=== PATIENT | male | born 1990 | race Caucasian/White ===

== ENCOUNTER 2020-11-20 15:48 | Outpatient (CLI) | payer SELFPAY ==
--- NOTE | 2020-11-20 11:56 | CT_ITS ---
WS: [id number] CT LUMBAR SPINE TECHNIQUE: Noncontrast CT of the lumbar spine with coronal and sagittal reformatted images. CLINICAL INFORMATION: M54.40 - Lumbago with sciatica, unspecified side COMPARISON: None. DLP: 2708.[address] scans at [facility] use at least one of these dose optimization techniques: automat ed exposure control; mA and/or kV adjustment per patient size (includes targeted exams where dose is matched to clinical indication); or iterative reconstruction. FINDINGS: Mild lumbar curve convex left. No acute compression fractures. 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 Mild disc bulging with peripheral calcification at L3-4. Bilateral chronic pars defects L3-4. No significant anterolisthesis. T12-L1: Narrowing of the right subarticular recess. No significant disc bulging. Moderate facet arthr opathy. Mild right and no significant left foraminal narrowing. L1-L2: No significant disc bulging. Moderate facet arthropathy with ligamentum flavum hypertrophy. Mi ld central canal stenosis. Foramen are patent. L2-L3: Minimal annular bulging. Moderate central canal stenosis. Moderate facet arthropathy with liga mentum flavum hypertrophy. Foramen are patent. L3-L4: Chronic bilateral pars defects. Moderate to advanced facet arthropathy with ligamentum flavum hypertrophy. Shallow central disc osteophyte protrusion with moderate central canal stenosis. Impinge ment on the subarticular recess bilaterally. Mild to moderate right L3-4 foraminal narrowing. L4-L5: Disc complex with endplate ridging. Tiny central disc osteophyte protrusion. Mild to moderate central canal stenosis. Moderate facet arthropathy with ligamentum flavum hypertrophy. Foramen are pa tent. L5-S1: Mild disc osteophytic ridging. Slight effacement of ventral thecal sac. Slight contact of the S1 nerve roots. Mild left greater than right bony foraminal narrowing. Moderate facet arthropathy. Visualized pelvic bony structures: Normal. Paravertebral soft tissues: Normal. Adrenal glands are normal. CT/CT lumbar spine wo con* [id number] IMPRESSION: 1. Mild lumbar curve convex left. No acute compression. 2. 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 Chronic bilateral pars defects L3-4. No anterolisthesis. 4. Moderate central canal stenosis L3-4 due to shallow central disc osteophyte protrusion with advanced facet arthropathy with ligamentum flavum hypertrophy. Impingement on the subarticular recess right greater than left. 5. Mild central canal stenosis L2-3 and L4-5. 6. Narrowing of the right subarticular recess T12-L1 with moderate facet arthr opathy. Mild right foraminal narrowing. 7. Mild to moderate right L3-4 bony foraminal narrowing. 8. Moderate facet arthropathy L3-4 and L4-5.
== END 2020-11-20 15:49 | disposition home or self-care (01) ==
LOC: RAD 15:49
PROVIDERS: Visit Provider Registered Nurse
DX: M54.40 Lumbago with sciatica, unspecified side (principal); M47.816 Spondylosis without myelopathy or radiculopathy, lumbar region; M48.061 Spinal stenosis, lumbar region without neurogenic claudication
CPT/HCPCS: 72131

== ENCOUNTER → 2022-05-20 13:16 | Outpatient (BNVA) | payer OTHER, SELFPAY | PROVIDERS: Visit Provider Emergency Medicine | DX: Z20.822 Contact with and (suspected) exposure to COVID-19 (principal); U07.1 COVID-19 | CPT/HCPCS: 87426 ==

== ENCOUNTER 2023-03-13 06:46 | Emergency (ER) | payer OTHER, SELFPAY ==
[2023-03-13 06:54] VITALS: BP 171/114; PULSE 65; RESP 18; TEMP 37.2; O2SAT 98; BMI 55.7
--- NOTE | 2023-03-13 07:16 | ED_ITS ---
HPI - Dental/Oral General: Chief complaint: Dental/Oral Stated complaint: lower left tooth pain Time Seen by Provider: 03/13/23 06:59 Source: patient Mode of arrival: ambulatory History of Present Illness: 32-year-old male presents emergency room with a fractured left mandibular molar. (Tooth #17). Patient was seen yesterday at [place] is given a tablet for pain but states it really did not help. Unfortunately does not have a local dentist he is established with. Onset (ago): day(s) Duration: constant Severity: moderate Relieving factors: nothing Exacerbating factors: nothing Context: history of dental caries Associated symptoms: Reports gum swelling; Denies ear or mastoid pain, fever(s), odynophagia, sore throat or tongue swelling Treatment prior to arrival: none Review of Systems Const: Denies: fever(s) or chills ENMT: Reports: dental pain; Denies: enlarged tonsils, odynophagia, hoarseness or ear or mastoid pain Card: Denies: chest pain, edema, dyspnea on exertion or orthopnea Resp: Denies: dyspnea, productive cough or non-productive cough GI: Denies: abdominal pain, nausea or vomiting : Denies: flank pain, dysuria, urinary frequency or urinary urgency Skin/Breast: Denies: rash or pruritus All/Imm: Denies: tongue swelling PFSH ED PFSH: Medical History Muscle tension headache Family History Mother CHF (congestive heart failure) Diabetes Social History Smoking and tobacco status: former smoker Alcohol intake: never Substance/Drug Use: never Adopted: No Caregiver/support person: No Lives independently: No Household members: significant other service: No Current occupational status: unemployed Sexually active: Yes Do you think of yourself as: Straight/Heterosexual Current gender identity: Male Physical Exam Const: GENERAL APPEARANCE: cooperative and comfortable ORIENTATION/CONSCIOUSNESS: Yes awake, Yes oriented to person, Yes oriented to place and Yes oriented to time HENMT: COMMON NORMALS: normocephalic, atraumatic and hearing grossly normal bilaterally HEAD & SCALP: normocephalic and atraumatic OTHER: Poor dentition. There is swelling and thickening of the gum around tooth numbers 17 and 18 the left mandible posteriorly. There is no abscess no lymphadenopathy no submandibular swelling. Resp: COMMON NORMALS: normal respiratory effort, No retractions, No use of accessory muscles and clear to auscultation bilaterally AUSCULTATION: clear to auscultation bilaterally Cardio: COMMON NORMALS: regular rate, regular rhythm and No murmurs present (Cardio) RATE: regular rate RHYTHM: regular rhythm GI: COMMON NORMALS: Soft to palpation and No hepatosplenomegaly present AUSCULTATION: Yes normoactive bowel sounds PALPATION: Yes Soft to palpation, No Tenderness to palpation present (GI), No Guarding due to palpation present (GI) and Yes No hepatosplenomegaly present Extremity: COMMON NORMALS: normal to inspection, capillary refill normal, no clubbing, cyanosis or edema, no calf tenderness and no pedal edema Neuro: SENSORIUM/ORIENTATION: Yes oriented to person, Yes oriented to place and Yes oriented to time Skin: COMMON NORMALS: no rashes or lesions noted GENERAL SKIN EXAM: no rashes or lesions noted Course Vital Signs: Vital signs: Vital Signs Temperature 98.9 F 03/13/23 06:54 Pulse Rate 67 03/13/23 07:33 Respiratory Rate 15 03/13/23 07:33 Blood Pressure 171/114 03/13/23 06:54 Pulse Oximetry 100 03/13/23 07:33 Oxygen Delivery Me thod Room Air 03/13/23 06:54 MDM - Dental/Oral Medical Decision Making Unfortunately we do not have anyone on staff for extractions. We will start on Augmentin gave pain medications can use at home along with ibuprofen 600 mg every 8 hours. Avoid foods that extreme temperatures follow-up with dentist as soon as he is able. Discharge Plan Discharge Patient Disposition: Home Clinical Impression: Fracture of tooth, Dental caries Condition: Stable Prescriptions: New amoxicillin-pot clavulanate 875-125 mg tablet 1 tab PO BID Qty: 20 0RF hydrocodone-acetaminophen 7.5-325 mg tablet 1 tab PO Q6H PRN (Reason: pain) Qty: 10 0RF No Action albuterol sulfate [Ventolin HFA] 90 mcg/actuation HFA aerosol inhaler 2 puff inhalation Q6H PRN (Reason: shortness of breath or wheezing) Qty: 8.5 0RF Discharge Orders: Discharge ED (Routine); Ordered 03/13/23 Ordered By: Chris Gan Patient Instructions: Opioid Safety, Pain Management Activity Restrictions/Additional Instructions: You are seen today for fractured tooth there appears to be infection along the gumline. Recommend you follow-up with a dentist as soon as you are able for definitive care in the interim you are given pain medication and an antibiotic. Coding Level of Care Code ED Border Machine Operator for Anca Tovar
[2023-03-13] MEDS: ketorolac 60 mg/2 mL INJ IM (07:18)
[2023-03-13] MEDS: HYDROcodone-acetaminophen 7.5-325 mg Tablet 1 TAB PO (07:32)
[2023-03-13 07:33] VITALS: PULSE 67; RESP 15; O2SAT 100
== END 2023-03-13 07:34 | disposition home or self-care (01) ==
PROVIDERS: Emergency Provider Family Medicine
DX: K02.9 Dental caries, unspecified (principal); S02.5XXA Fracture of tooth (traumatic), initial encounter for closed fracture; X58.XXXA Exposure to other specified factors, initial encounter; Z87.891 Personal history of nicotine dependence
CPT/HCPCS: 96372; 99284; J1885

== ENCOUNTER 2023-05-31 05:39 | Emergency (ER) | payer OTHER, SELFPAY ==
--- NOTE | 2023-05-31 05:44 | XRR_ITS ---
PROCEDURE INFORMATION: Exam: XR Chest Exam date and time: 05/31/2023 5:48 AM Age: 32 years old Clinical indication: Left-sided; Patient HX: C/O left sided chest pain; Additional info: Cp TECHNIQUE: Imaging protocol: Radiologic exam of the chest. Views: 1 view. COMPARISON: No relevant prior studies available. FINDINGS: Tubes, catheters and devices: A couple monitor leads project over the chest. Lungs: No significant or acute findings. No consolidation. Pleural spaces: No significant costophrenic angle blunting. No pneumothorax. Heart/Mediastinum: Enlarged cardiopericardial silhouette. Bones/joints: No acute osseous abnormality. Soft tissues: Large body habitus. XR/XR chest 1V portable [id number] IMPRESSION: Cardiomegaly versus pericardial effusion.
--- NOTE | 2023-05-31 05:45 | ECG_ITS ---
[facility] Test Date: 2023-05-31 Pat Name: Dav Almodovar Department: Room: Gender: Male Rehabilitation Attendant: : 1990 Requested By: Keith Rod Order Number: [id number] Ingrid MD: Filiberto Nielson M.D. Measurements Intervals [place] Rate: 52 P: 52 [place]: 168 QRS: 50 QRSD: 105 T: 29 QT: 405 QTc: 378 Interpretive Statements SINUS BRADYCARDIA WITH OCCASIONAL SUPRAVENTRICULAR PREMATURE COMPLEXES No previous ECG available for comparison Electronically Signed On 05-31-2023 16:15:48 CDT by Filiberto Nielson M.D. [email or web address] [email or web address] [email or web address].[email or web address]/store/NU/[id number] f
[2023-05-31 05:46] VITALS: BP 169/79; PULSE 50; RESP 17; TEMP 37; O2SAT 99; BMI 55.7
[2023-05-31 06:03] LABS: Basophils # 0.1 10^3/uL (0.0-0.1); Basophils % 0.4 %; Eosinophils # 0.3 10^3/uL (0.0-0.8); Eosinophils % 2.2 %; Hematocrit 45.1 % (37-53); Lymphocytes # 2.8 10^3/uL (0.8-4.8); Lymphocytes % 19.7 %; Mean Corpuscular HGB Conc 34.1 g/dL (30-55); Mean Corpuscular Hemoglobin 28.8 pg (27-33); Mean Corpuscular Volume 84.3 fl (82-101); Mean Platelet Volume 10.4 fL (7.4-10.4); Monocytes # 0.7 10^3/uL (0.2-0.9); Monocytes % 4.8 %; Neutrophils # 10.11 10^3/uL (1.8-7.7); Neutrophils % 72.3 %; Nucleated Red Blood Cells % 0 %; Platelet Count 339 10^3/cmm (157-399); Red Blood Count 5.35 10^6/uL (3.85-5.65); Red Cell Distribution Width 13.9 % (12.1-15.1); White Blood Count 13.98 10^3/uL (3.29-11.43)
[2023-05-31 06:19] LABS: INR 1.01 (0.8-1.2)
[2023-05-31 06:20] VITALS: BP 150/84; PULSE 53; RESP 18; O2SAT 97
--- NOTE | 2023-05-31 06:21 | W.ED.CHESTPA ---
HPI - Chest Pain General: Chief Complaint: Chest Pain Stated Complaint: tightness in chest sob Time Seen by Provider: 05/31/23 05:46 Source: patient Mode of arrival: ambulatory History of Present Illness: 32-year-old male who presents to the emergency room with complaints of chest discomfort and shortness of breath. He is not episodes like this before he woke up from sleep he feels like it radiates into his back place localizes pain to the left side of the chest tight aching sensation. Patient denies history of diabetes heart disease he is non-smoker. MD complaint: chest pain Onset (ago): minute(s) Timing of current episode: episodic Prior episodes: No Onset: during rest Pain location: left chest Pain radiation: back Severity: mild Quality: tightness and aching Relieving factors: nothing Exacerbating factors: nothing Associated symptoms: Deny abdominal pain, diaphoresis, dyspnea, fever(s), leg edema, nausea, palpitations, sense of impending doom, syncope or vomiting Treatment prior to arrival: none Review of Systems Const: Denies: fever(s), chills, fatigue, malaise or diaphoresis ENMT: Denies: throat pain, ear or mastoid pain, nasal discharge or nasal congestion Card: Reports: chest pain; Denies: palpitations, irregular heart rhythm, edema or syncope Resp: Denies: dyspnea, productive cough or non-productive cough GI: Denies: abdominal pain, nausea or vomiting : Denies: flank pain, dysuria, urinary frequency or urinary urgency Skin/Breast: Denies: rash or pruritus PFSH ED PFSH: Medical History Muscle tension headache Family History Mother CHF (congestive heart failure) Diabetes Social History Smoking and tobacco status: former smoker Alcohol intake: never Substance/Drug Use: never Adopted: No Caregiver/support person: No Lives independently: No Household members: significant other service: No Current occupational status: unemployed Sexually active: Yes Do you think of yourself as: Straight/Heterosexual Current gender identity: Male Physical Exam Const: GENERAL APPEARANCE: cooperative and comfortable ORIENTATION/CONSCIOUSNESS: Yes awake, Yes oriented to person, Yes oriented to place and Yes oriented to time HENMT: COMMON NORMALS: normocephalic, atraumatic and hearing grossly normal bilaterally HEAD & SCALP: normocephalic and atraumatic Resp: COMMON NORMALS: normal respiratory effort, No retractions, No use of accessory muscles and clear to auscultation bilaterally AUSCULTATION: clear to auscultation bilaterally Cardio: COMMON NORMALS: regular rate, regular rhythm and No murmurs present (Cardio) RATE: regular rate RHYTHM: regular rhythm GI: COMMON NORMALS: Soft to palpation and No hepatosplenomegaly present AUSCULTATION: Yes normoactive bowel sounds PALPATION: Yes Soft to palpation, No Tenderness to palpation present (GI), No Guarding due to palpation present (GI) and Yes No hepatosplenomegaly present Extremity: COMMON NORMALS: normal to inspection, capillary refill normal, no clubbing, cyanosis or edema, no calf tenderness and no pedal edema Neuro: SENSORIUM/ORIENTATION: Yes oriented to person, Yes oriented to place and Yes oriented to time Skin: COMMON NORMALS: no rashes or lesions noted GENERAL SKIN EXAM: no rashes or lesions noted Course Vital Signs: Vital signs: Vital Signs Temperature 98.6 F 05/31/23 05:46 Pulse Rate 63 05/31/23 08:19 Respiratory Rate 21 H 05/31/23 08:19 Blood Pressure 137/66 05/31/23 08:19 Pulse Oximetry 97 05/31/23 08:19 Oxygen Delivery Me thod Room Air 05/31/23 08:19 MDM - Chest Pain Medical Decision Making Labs and imaging reviewed. Cardiomegaly on the chest x-ray was a slightly elevated white count and CRP. Echocardiogram no evidence of pericardial effusion does not believe patient at this point has a pericarditis. His symptoms are gone at this time. Chest x-ray does not show any pneumonia he is not tachycardic or hypotensive he is not hypoxic. No evidence of acute coronary syndrome pulmonary emboli pneumothorax pneumonia or dissecting aneurysm based on history imaging findings and labs. We will discharge patient home suspect this may just be a simple viral pressure infection potentially even some pleuritic chest discomfort. Have the patient follow-up with his primary care doctor if he has persistent symptoms. Medical Records I reviewed the patient's medical records. Lab Data I reviewed the patient's lab results. 05/31/23 05:43 05/31/23 05:43 Radiology Impressions Chest X-Ray 05/31/23 05:44 IMPRESSION: Cardiomegaly versus pericardial effusion. Laboratory Results WBC 13.98 10^3/uL (3.29-11.43) H 05/31/23 05:43 RBC 5.35 10^6/uL (3.85-5.65) 05/31/23 05:43 Hgb 15.40 g/dL (11.27-16.99) 05/31/23 05:43 Hct 45.1 % (37-53) 05/31/23 05:43 MCV 84.3 fl (82-101) 05/31/23 05:43 MCH 28.8 pg (27-33) 05/31/23 05:43 MCHC 34.1 g/dL (30-55) 05/31/23 05:43 RDW 13.9 % (12.1-15.1) 05/31/23 05:43 Plt Count 339 10^3/cmm (157-399) 05/31/23 05:43 MPV 10.4 fL (7.4-10.4) 05/31/23 05:43 Neut % (Auto) 72.3 % 05/31/23 05:43 Lymph % (Auto) 19.7 % 05/31/23 05:43 [place] % (Auto) 4.8 % 05/31/23 05:43 Eos % (Auto) 2.2 % 05/31/23 05:43 Baso % (Auto) 0.4 % 05/31/23 05:43 Neut # (Auto) 10.11 10^3/uL (1.8-7.7) H 05/31/23 05:43 Lymph # (Auto) 2.8 10^3/uL (0.8-4.8) 05/31/23 05:43 [place] # (Auto) 0.7 10^3/uL (0.2-0.9) 05/31/23 05:43 Eos # (Auto) 0.3 10^3/uL (0.0-0.8) 05/31/23 05:43 Baso # (Auto) 0.1 10^3/uL (0.0-0.1) 05/31/23 05:43 Nucleated RBC % (auto) 0 % 05/31/23 05:43 Nucleated RBCs # 0.0 /100WBC 05/31/23 05:43 PT 13.60 SECONDS (12.1-14.9) 05/31/23 05:43 INR 1.01 (0.8-1.2) 05/31/23 05:43 APTT 30.0 SECONDS (23.9-36.7) 05/31/23 05:43 Sodium 141 mmol/L (136-145) 05/31/23 05:43 Potassium 4.5 mmol/L (3.5-5.1) 05/31/23 05:43 Chloride 107 mmol/L (98-107) 05/31/23 05:43 Carbon Dioxide 23 mmol/L (22-29) 05/31/23 05:43 Anion Gap 15.5 (5-19) 05/31/23 05:43 BUN 17 mg/dL (6-20) 05/31/23 05:43 Creatinine 0.9 mg/dL (0.7-1.2) 05/31/23 05:43 GFR Calculation 98.4 mL/min (90-130) 05/31/23 05:43 Glucose 99 mg/dL (65-115) 05/31/23 05:43 Calculated Osmolality 294 mOsm/kg (285-295) 05/31/23 05:43 Calcium 9.2 mg/dL (8.5-10.5) 05/31/23 05:43 Total Bilirubin 0.6 mg/dL (0.15-1.2) 05/31/23 05:43 AST 17 U/L (0-40) 05/31/23 05:43 ALT 35 U/L (0-41) 05/31/23 05:43 Alkaline Phosphatase 90 U/L (40-130) 05/31/23 05:43 Troponin T Baseline 7 ng/L (0-15) 05/31/23 05:43 Troponin T 120 Minute 7.02 ng/L (0-15) 05/31/23 07:36 Delta Troponin T 0.02 ABS# (0-10) 05/31/23 07:36 C-Reactive Protein 17.3 mg/L (0.0-4.9) H 05/31/23 05:43 NT-Pro-B Natriuret Pep 75 pg/mL (0-125) 05/31/23 05:43 Total Protein 7.0 g/dL (6.6-8.7) 05/31/23 05:43 Albumin 4.5 g/dL (3.5-5.2) 05/31/23 05:43 Globulin 2.5 g/dL (1.3-4.6) 05/31/23 05:43 All radiology interpretation(s) finalized by discharge Discharge Plan Discharge Patient Disposition: Home Clinical Impression: Atypical chest pain Condition: Stable Prescriptions: No Action ibuprofen 200 mg Tablet 400 mg PO Q6H PRN (Reason: Pain) Discharge Orders: Discharge ED (Routine); Ordered 05/31/23 Ordered By: Chris Gan Discharge Diet: Usual diet Discharge Activity: Resume usual activity Patient Instructions: Opioid Safety, Pain Management Coding Level of Care Code ED Power Project Manager for Anca Tovar
[2023-05-31 06:24] LABS: Troponin(5th) Baseline 7 ng/L (0-15)
[2023-05-31] MEDS: lidocaine 2% viscous 15 ML, aluminum-mag hydrox-simethicon 30 ML, sucralfate oral liq 1 GM PO (06:32)
[2023-05-31 06:33] LABS: Alanine Aminotransferase 35 U/L (0-41); Albumin Level 4.5 g/dL (3.5-5.2); Alkaline Phosphatase 90 U/L (40-130); Anion Gap 15.5 (5-19); Aspartate Amino Transferase 17 U/L (0-40); Blood Urea Nitrogen 17 mg/dL (6-20); Calcium 9.2 mg/dL (8.5-10.5); Carbon Dioxide 23 mmol/L (22-29); Chloride 107 mmol/L (98-107); Globulin 2.5 g/dL (1.3-4.6); Glomerular Filtration Rate 98.4 mL/min (90-130); Glucose 99 mg/dL (65-115); NT Pro B Type Natriuretic Pept 75 pg/mL (0-125); Osmolality Calculated 294 mOsm/kg (285-295); Potassium 4.5 mmol/L (3.5-5.1); Sodium 141 mmol/L (136-145); Total Bilirubin 0.6 mg/dL (0.15-1.2)
[2023-05-31 06:48] LABS: C Reactive Protein 17.3 mg/L (0.0-4.9)
--- NOTE | 2023-05-31 06:52 | USCV_ITS ---
Dav Almodovar Age: 32 Gender: M : 1990 Exam Date: 05/31/2023 07:19 Ordering Phys: Chris Gan DO Technologist: Gilbert Amador [place] [facility] [place] ? per effusion BP: 153 / 81 HR: 50 Rhythm: Sinus Technical Quality: Adequate MEASUREMENTS (Male / Female) Normal Values 2D ECHO LV Diastolic Diameter PLAX 5.4 cm 4.2 - 5.9 / 3.9 - 5.3 cm LV Systolic Diameter PLAX 3.6 cm IVS Diastolic Thickness 1.6 cm 0.6 - 1.0 / 0.6 - 0.9 cm IVS Systolic Thickness 2.0 cm LVPW Diastolic Thickness 1.3 cm 0.6 - 1.0 / 0.6 - 0.9 cm LVPW Systolic Thickness 1.6 cm LVOT Diameter 2.1 cm LV Ejection Fraction 2D Teich 61.6 % LV Ejection Fraction MOD 2C 60.3 % LV Ejection Fraction 2C AL 60.2 % LA Diameter 3.6 cm M-MODE Aortic Annulus Diameter 3.8 cm LA Ao Ratio MM 1.0 MV E Point Septal Separation 1.6 cm DOPPLER AV Peak Velocity 132.0 cm/s LVOT Peak Velocity 103.0 cm/s AV Area Cont Eq vti 3.6 cm squared AV Area Cont Eq pk 2.8 cm squared MV Area PHT 4.8 cm squared Mitral E to A Ratio 1.6 MV E' Velocity 67.5 cm/s Mitral E to MV E' Ratio 12.5 Mitral E to LV E' Lateral Ratio 13.4 Mitral E to LV E' Septal Ratio 11.7 TR Peak Velocity 122.3 cm/s TR Peak Gradient 6.0 mmHg TV Peak E Velocity 124.0 cm/s Right Atrial Pressure 3.0 mmHg Pulmonary Artery Systolic Pressu 9.0 mmHg FINDINGS Left Ventricle Normal left ventricular size and systolic function, EF 66 %. No regional wall motion abnormalities. (Echo contrast - Optison was used to delineate the endocardium and to estimate the LV ejection fraction) Right Ventricle Was not visualized well. Possibly of normal size and ejection fraction Right Atrium Right atrium not well visualized. Left Atrium Possibly of normal size Mitral Valve No gross abnormalities noted Aortic Valve Leaflets could not be visualized well. No gross abnormalities noted Tricuspid Valve Tricuspid valve not well visualized. Pulmonic Valve Pulmonic valve not well visualized. Pericardium No pericardial effusion. Aorta Normal aortic annulus size. IVC Inferior vena cava not visualized. CONCLUSIONS Normal left ventricular size and systolic function, EF 66 %. No regional wall motion abnormalities. (Echo contrast - Optison was used to delineate the endocardium and to estimate the LV ejection fraction). Right ventricle, possibly of normal size ejection fraction. The left atrium also appears to be of normal size. No pericardial effusion. Technically difficult study because of the poor ultrasonic window. Dr Pernell Welch MD FACC (Electronically Signed) Final Date: 31 May 2023 08:30 S
--- NOTE | 2023-05-31 07:20 | PC.PHAR ---
pt states he takes no rx medications-pt states only takes otc ibuprofen prn-pt states he no longer has an albuterol inhaler ext shows last filled 07/31/22
--- NOTE | 2023-05-31 07:51 | ECG_ITS ---
[facility] Test Date: 2023-05-31 Pat Name: Dav Almodovar Department: Room: Gender: Male Underwriting Intern: : 1990 Requested By: Keith Rod Order Number: [id number] Ingrid MD: Filiberto Nielson M.D. Measurements Intervals [place] Rate: 56 P: 57 [place]: 161 QRS: 50 QRSD: 109 T: 24 QT: 405 QTc: 393 Interpretive Statements SINUS BRADYCARDIA Compared to ECG 05/31/2023 05:44:55 No significant changes Electronically Signed On 05-31-2023 16:19:06 CDT by Filiberto Nielson M.D. [id number]
[2023-05-31] MEDS: perflutren protein-a microsphr 0.22 mg/mL SDV 3 mL IV (07:55)
[2023-05-31 08:19] VITALS: BP 137/66; PULSE 63; RESP 21; O2SAT 97
[2023-05-31 08:19] LABS: Troponin 5 2HR 7.02 ng/L (0-15); Troponin 5 2HR Delta 0.02 ABS# (0-10)
[2023-05-31 08:28] VITALS: BP 154/70; PULSE 58; RESP 24; O2SAT 97
== END 2023-05-31 08:29 | disposition home or self-care (01) ==
PROVIDERS: Emergency Medicine; Emergency Provider Family Medicine
DX: R07.89 Other chest pain (principal); Z87.891 Personal history of nicotine dependence
CPT/HCPCS: 36415; 71045; 80053; 83880; 84484; 85025; 85610; 85730; 86140; 87040; 93005; 99285; C8929; Q9956